=== PATIENT | female | born 2005 | race Caucasian/White ===

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

== ENCOUNTER 2025-01-18 15:03 | Outpatient (REF) | payer MEDICAID, SELFPAY ==
--- OUTSIDE RECORDS SUMMARY | 2025-01-18 16:26 | XMS_ITS | Encounter Summary ---
Author Organization [facility] Address [address] [place] [address] Phone Care Team Providers Care Dairy Grazer Name Role Phone Aslhey De La Fuente MD Primary Care Provider [phone] Encounter Details Date Type Department Care Team (Late st Contact Info) Description 01/06/2010 Documentation [facility] Family Medicine [address] [place] [address] Family Medicine, Physician [address] [place], [place] [id number] Social History Tobacco Use Types Packs/Day Years Used Date Smoking Tobacco: Never Assessed Comments Unknown Sex and Gender Information Value Date Recorded Sex Assigned at Female 08/26/2022 10:15 PM EDT Legal Sex Female 5:01 PM EDT Gender Identity Female 09/02/2021 8:37 AM EDT Sexual Orientation Straight 11/28/2021 4: 13 PM EST documented as of this encounter Plan of Treatment Not on file documented as of this encounter Visit Diagnoses Not on filedocumented in this encounter Care Teams Dairy Grazer Relationship Specialty Start Date End Date Ashley De La Fuente MD [address] [place] [id number] PCP - General Pediatrics 09/15/22 documented as of this encounter
--- OUTSIDE RECORDS SUMMARY | 2025-01-18 16:26 | XMS_ITS | Encounter Summary ---
Author Organization [facility] Address [address] [place] [address] Phone Care Team Providers Care Bicycle Messenger Name Role Phone Ashley De La Fuente MD Primary Care Provider [phone] Reason for Visit * Reason Onset Date Comments overdue labs 12/25/2024 Encounter Details Date Type Department Care Team ([facility] st Contact Info) Description 12/25/2024 Telephone [facility] [address] [place] [address] Barb Trevino LPN [address] [place] [address] overdue labs Social History Tobacco Use Types Packs/Day Years Used Date Smoking Tobacco: Never Smokeless Tobacco: Never Alcohol Use Standard Drinks/Week Comments Never 0 (1 standard drink = 0.6 oz pur e alcohol) Hunger/Food Answer Date Recorded In the last 12 months, did y ou or your family ever eat less than you felt you should because there wasn't enough money for food? No 08/26/2022 Stable Housing Answer Date Recorded Are you worried that in the next 2 months you may not have stable housing? Yes 08/26/2022 Transportation Concerns Answer Date Rec orded In the last 12 months, have you or your family ever had to go without healthcare because you didn't have a way to get there? No 08/26/2022 Hazards in Home Answer Date Recorded Think about the place you li ve. Do you have problems with any of the following? Pests (mice or roaches), mold, no/not working smoke detectors, water leaks, no window guards. No 2021 Financing Utilities Answer Date Recorde d In the last 12 months, has t he electric, gas, oil, or water company threatened to shut off your services in your home? No 08/26/2022 Safety at Home Answer Date Recorded Are you or your family worried about feeling saf e in your home? No 08/26/2022 Outside Support Answer Date Recorded Do you feel that you need mo re support from other people or programs to help you care for yourself or your family? Yes 08/26/2022 Understanding Health Concerns Answer Da te Recorded Do you need help understandi ng your or your child's healthcare needs (diagnosis, medications, plan, etc.)? No 08/26/2022 Financing Health Concerns Answer Date R ecorded In the last 12 months, was t here a time when your child needed to see a doctor or get medications or supplies but could not because of cost? No 08/26/2022 Missing School or Work Answer Date Cyrus rded Did you or your child miss s chool or work because of a health problem that could have been avoided? No 08/26/2022 Comments No Sex and Gender Information Value Date Recorded Sex Assigned at Female 08/26/2022 10:15 PM EDT Legal Sex Female 5:01 PM EDT Gender Identity Female 09/02/2021 8:37 AM EDT Sexual Orientation Straight 11/28/2021 4: 13 PM EST documented as of this encounter Miscellaneous Notes * Telephone Encounter - Barb Trevino LPN - 12/25/2024 3:16 PM EST Overdue labs message sent via [employer]. documented in this encounter Plan of Treatment Not on file documented as of this encounter Visit Diagnoses Not on filedocumented in this encounter Care Teams Bicycle Messenger Relationship Specialty Start Date End Date Ashley De La Fuente MD [address] [place] [phone] PCP - General Pediatrics 09/15/22 documented as of this encounter
--- OUTSIDE RECORDS SUMMARY | 2025-01-18 16:26 | XMS_ITS | Clinical Summary ---
Author Organization [facility] Address [address] [place] [address] Phone Care Team Providers Care Inspector Final Assembly Electrical Name Role Phone Ashley De La Fuente MD Primary Care Provider [phone] Allergies No known active allergies Medications omeprazole 40 MG capsule Take 40 mg by mouth daily. 10/09/2024 Active medroxyPROGESTER one 150 MG/ML injection Inject into the muscle every 3 months. Active Active Problems Problem Noted Date Diagnosed Date Irritable bowel syndrome with diarrhea 2 Overview (10/09/2024): 08/28: Sees GI at [facility] Yohan Fallon - Dr. Braxton. Dx with IBS, lactose intolerance. No meds. Lactaid pills help. Manages pain/diarrhea. Pt felt meds didn't help. Won't take any meds. 10/02/24 Had GI f/u at [facility]. Labs ordered, trial of omeprazole and Bentyl, ref to RD for meal ideas, f/u in 4-6 wks with GI Assessment & Plan (10/11/2024 10:19 PM EST): Pt lost lab slip from GI and has not gone for labs yet. Labs ordered per GI note and pt will get these done today. She will get stool collection cups from the lab. She is not taking Miralax because that made her feel worse, but feels dicyclomine and omeprazole are helping. F/u with GI Dr Braxton at [facility]. She will schedule this f/u, as well as f/u with RD. F/u with me in 3 mo to follow weight and mental health. Assessment & Plan (08/26/2022 10:33 AM EDT): Sees GI at [facility] [place] [facility] Yohan Fallon - Dr. Braxton. Dx with IBS, lactose intolerance. No meds. Lactaid pills help. Manages pain/diarrhea. Pt felt meds didn't help. Won't take any meds. Assessment & Plan (12/23/2021 5:37 PM EST): Etiology remains unclear. Exam unremarkable. Labs reviewed, all within normal limits, and those out of range not clinically significant. Weight reviewed, essentially stable - she has gained and then lost about 3 lb in the last three months. The extent of the vomiting and diarrhea, and avoidance of PO intake, as described by patient and her mother, would be expected to result in some findings. She is being treated for depression with both medication and therapy; denies any primary avoidance of school or social situations. I recommend a GI consult to better clarify what is going on here. Referral placed and contact info given to mother. I encourage her to try to drink fluids and eat even though she fears the vomiting and diarrhea. Encourage trying to attend school as well. Mixed anxiety and depressive disorder 09/25/2021 Assessment & Plan (10/11/2024 10:20 PM EST): Struggling but feels she is starting to improve s/p getting out of difficult relationship. Declines HC support but agrees it might be time to find a therapist in the community. Gave list of community therapists. Also gave crisis info, though pt denies SI. (Positive answer on screen not indicative of actual SI, per pt.) Assessment & Plan (08/26/2022 10:11 PM EDT): No meds or therapy now. Some SI but refuses to deal with it. She agreed to consider one meeting with our [facility] Arely Gustafson, whom she saw in the past, to brainstorm ideas for management. Assessment & Plan (11/04/2021 6:35 PM EST): Refill provided today. Goal to take it every day without missing doses. Set an alarm on the phone. We discussed continuing therapy, regular exercise and self care. Additional goal of getting sleep on track. Follow up in one month. Assessment & Plan (09/25/2021 9:48 AM EST): Increasing from 10 to 20 mg today. She has had a good response so far. Discussed continuing regular therapy and healthy self care habits. She agrees to tell mom or another trusted adult if she has worsening of her moods or suicidal thoughts. She has the crisis number in her phone. Recheck in 4 weeks. Refused influenza vaccine 02/09/2021 Overview (08/26/2022): 08/28. Assessment & Plan (08/26/2022 11:01 AM EDT): Strongly encouraged the influenza vaccine to help prevent influenza personally, & in the community, especially in light of concurrent coronavirus pandemic Family/patient still declined today They will call if they decide to get it Migraine with aura and witho ut status migrainosus, not intractable 10/22/2019 Overview (10/22/2019): 10/22/2019 new diagnosis today. Headaches are throbbing, left side of your. Gets aura of white spots like little starts in vision at the beginning of the headache sometimes. +photophobia. No phonophobia. Advil 800 mg does not help. Sleep helps. Getting headaches twice per week. Does not like to take meds, delays taking advil with headaches. No wake from sleep. Assessment & Plan (10/11/2024 2:59 PM EST): Still gets migraines. Waits too long to take meds. Ibuprofen prn. Getting SAAB less than once/month. Will try taking meds earlier. Will drink more water, eat more consistently. Assessment & Plan (08/26/2022 10:36 AM EDT): Not getting headaches so much anymore. Assessment & Plan (10/22/2019 4:47 PM EST): Discussed migraine triggers such as poor sleep, skipping meals, dehydration, and stress. Jina was encouraged to start working on these measures to avoid the need for medication. I also encouraged Jina to take ibuprofen right away for bad headaches, and not to wait. I encouraged Jina's mother to give some responsibility for migraine management and lifestyle change to Jina, and to try not to 'nag'. I asked Jina to keep a headache diary. 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 Referred to [facility]/ [facility] and counselling was arranged. Mom has agreed to Triple P parenting program. 08/21. In counseling for short term only in 2014. Referred back to counseling 2017 when mom became concerned again about about her behaviors/ anger. Encounters Date Type Department Care Team Description 01/14/2025 Telephone [facility] [address] [place] [address] Tresa Spence [place] No Show 12/26/2024 2:30 PM EST Office Visit [facility] [address] [place] [address] Marisol Melendez MD Gastroenteritis (Primary Dx) 12/25/2024 Telephone [facility] [address] [place] [address] Barb Trevino LPN overdue labs from Last 3 Months Immunizations Immunization Administration Dates Next Due COVID-19 Pfizer, hugh-sucros e, 12+ years 12/15/2021 DTaP 5 01/07/2010, 7,03/14/2006,01/12,2005 H1N1 09/08/2009 HPV Vaccine 9 Valent 02/09/2021,02/20/2019 Hep A, ped/adol 02/20/2019,02/20/2018 Hep B, ped/adol 06/03/2006,03/14/2006,2005 Hib (HbOC) 05/15/2007 Hib (PRP-T) 03/14/2006,01/12/2006,2005 IPV 01/07/2010, 6,01/12/2006,11/15 MMR 01/07/2010 MMRV 09/16/2006 Meningococcal Conj (Menactra) MCV4P 02/20/2018 Meningococcal Conj (Menquadfi) MCV4TT 08/26/2022 Pneumococcal Conjugate 05/15/2007,2005,01/12/2006,11/15 Tdap 02/20/2018 Varicella 01/07/2010 Family History Medical History Relation Name Comments ADD / ADHD Father Rc Gera Anxiety disorder Father Rc Gera Bipolar disorder Father Rc Gera Dental caries Father Rc Gera Depression Father Rc Gera Anxiety disorder Mother Kim Sharma Asthma Mother Kim Sharma Bipolar disorder Mother Kim Sharma Dental caries Mother Kim Sharma Depression Mother Kim Sharma Migraines Mother Kim Sharma Obesity Mother Kim Sharma Relation Name Status Comments Father Rc Boss Alive Father: Alive a nd well Mother Kim Sharma Alive Mother: Alive and well Other No family histo ry of Developmental dislocation of hip, No family history of Strabismus/amblyopia, No family history of Sudden /PA under age 55, No family history of Deafness, No family history of Seizure disorder, No family history of ADD/ADHD Social History Tobacco Use Types Packs/Day Years Used Date Smoking Tobacco: Never Smokeless Tobacco: Never Tobacco Cessation:Counseling Given: Yes Alcohol Use Standard Drinks/Week Comments Never 0 [...] Orientation Straight 11/28/2021 4: 13 PM EST Last Filed Vital Signs Vital Sign Reading Time Taken Comments Blood Pressure 121/75 10/11/2024 2:07 PM EST Pulse 88 10/11/2024 2:07 PM EST Temperature 38.1 ??C (100.5 ??F) 12/26/2024 2:[address] Respiratory Rate - - Oxygen Saturation 100% 11/16/2016 12:00 AM EST Inhaled Oxygen Concentration - - Weight 54.1 kg (119 lb 3.2 oz) 12/26/2024 2:44 P M EST Height 172 cm (5' 7.7 ) 10/11/2024 2:07 PM EST Body Mass Index 18.29 10/11/2024 2:07 PM EST Plan of Treatment Health Maintenance Due Date Last Done Comments Men B Vaccine (1 of 2 - Standard) 2021 Influenza Vaccines (#1) 2024 COVID-19 Vaccine (2 - 2023-2 5 season) 2024 12/15/2021 Chlamydia and Gonorrhea Screening 11/07/2024 08/26/2022, 02/02/2022, 11/24/2021, Additional history exists DTaP,Tdap,and Td Vaccines (7 - Td or Tdap) 02/21/2028 02/20/2018, 01/07/2010, 05/15/2007, Additional history exists Hepatitis B Vaccines Completed 06/03/2006, 03/14/2006, 2005 HIB Vaccines Completed 05/15/2007, 06/2006, 01/12/2006, Additional history exists Pneumococcal Vaccine Completed 05/15/2007, 03/14/2006, 01/12/2006, Additional history exists IPV Vaccines Completed 01/07/2010, 05/08, 01/12/2006, Additional history exists MMR Vaccines Completed 01/07/2010, 09/16/2006 Varicella Vaccines Completed 01/07/2010, 09/16/2006 Hepatitis A Vaccines Completed 02/20/2019, 02/21/20 18 HPV Vaccines Completed 02/09/2021, 02/20/2019 Meningococcal Vaccine Completed 08/26/2022, 018 HIV Screening Completed 10/11/2024 Hepatitis C Screening Completed 10/11/2024 Procedures * Due to [place] state law, this organization might not be sharing sensitive test results. Procedure Name Priority Date/Time Associated Diagnosis Comments HEPATITIS C ANTIBODY WITH REFLEX TO HCV, RNA, QUANT, RT PCR Routine 10/11/2024 3:08 PM EST Irritable bowel syndrome with diarrhea Weight loss, unintentional CHLAMYDIA AND GONORRHEA, AMPLIFIED Routine 08/26/2022 11:14 AM EDT Encounter for screening examination for chlamydial infection from Last 3 Months or Most Recently Relevant to Health Maintenance Results * Due to [place] state law, this organization might not be sharing sensitive test results. * Hepatitis C antibody (10/11/2024 3:08 PM EST) [facility] HCV Ab Non Reactive Non Reactive [facility] Blood 10/11/2024 3:08 PM EST 10/11/2024 Narrative [facility] - 10/12/2024 12:07 PM EST Performed at: ??01 - [facility], [address], [place], [place] ??[id number] Fitness Director: Dg Andrews MD, Phone: ??[phone] us Ashley De La Fuente MD LAB BLOOD ORDERABLES Final Resul t [facility] [address] [place] [address] * Chlamydia and Gonorrhoea, Amplified (08/26/2022 11:14 AM EDT) [facility] Chlamydia Trachomatis, DNA Probe NEGATIVE (NEG) [facility] Comment: No Chlamydia Trachomatis RNA detected in this patient's sample ? (REFERENCE RANGE/NORMAL VALUE: NOT DETECTED) ? Note: This test uses plastics fitter- mediated amplification method to detect rRNA from C. Trachomatis URINE GC AMP PROBE NEGATIVE (NEG) [facility] Comment: No Neisseria Gonorrhoeae RNA detected in this patient's sample ? (REFERENCE RANGE/NORMAL VALUE: NOT DETECTED) ? NOTE: This test uses plastics fitter-mediated amplification method to detect rRNA from N.Gonorrhoeae. A negative result does not preclude infection. In the case of a negative urine result, testing of an endocervical(female) or urethral (male) specimen is recommended if there is high clinical suspicion of infection. Due to very high sensitivity of Nucleic Acid Amplification Test, false positive results may occur. Therefore, specimen handling is extremely important. In patients in whom the disease is unlikely, additional sample for testing should be considered after an initial positive result. The performance characteristics of this test have not been evaluated in children. The Aptima Combo2 assay is not intended for the evaluation of suspected sexual abuse or for other medico-legal indications. The ordering provider should assess if the patient had consensual sex without risk of sexual abuse. Consult the [facility] if needed. Contact phone number . Therapeutic failure or success cannot be determined with the Aptima Combo2 assay since nucleic acid may persist following appropriate antimicrobial therapy. The Centers for Disease Control and Prevention (CDC) recommends confirmatory retesting using culture or a different nucleic acid amplification test when positive results occur, if indicated. Testing performed or reported by [facility], a Service of [facility], [address] [place] [address] Dg Andrews MD, Neck Band Operator [facility]# [id number] Urine (Urine) 08/26/2022 11: 14 AM EDT 08/26/2022 3:15 PM EDT us Ashley De La Fuente MD LAB MICROBIOLOGY - GENERAL ORDER PITER Final Result [facility] from Last 3 Months or Most Recently Relevant to Health Maintenance Insurance [facility] NON PCC ACO [facility] Address: [address] [address] [place] [address] [facility] NON PCC Care Teams Inspector Final Assembly Electrical Relationship Specialty Start Date End Date Ashley De La Fuente MD [address] [place] [address] [phone] PCP - General Pediatrics 09/15/22
--- OUTSIDE RECORDS SUMMARY | 2025-01-18 16:26 | XMS_ITS | Encounter Summary ---
Author Organization [facility] Address [address] [place] [address] Phone Care Team Providers Care Bridge Club Manager Name Role Phone Ashley De La Fuente MD Primary Care Provider [phone] Encounter Details Date Type Department Care Team (Late st Contact Info) Description 03/04/2010 Documentation [facility] [place] [address] [place] [address] Family Medicine, Physician [address] [place], [place] [id number] Social History Tobacco Use Types Packs/Day Years [...] on filedocumented in this encounter Care Teams Bridge Club Manager Relationship Specialty Start Date End Date Ashley De La Fuente MD [address] [place] [address] PCP - General Pediatrics 09/15/22 documented as of this encounter
--- OUTSIDE RECORDS SUMMARY | 2025-01-18 16:26 | XMS_ITS | Encounter Summary ---
Author Organization [facility] Address [address] [place] [address] Phone Care Team Providers Care Setter Out Name Role Phone Ashley De La Fuente MD Primary Care Provider [phone] Encounter Details Date Type Department Care Team (Late st Contact Info) Description 01/08/2010 Documentation [facility] [place] Family Medicine [address] [place] [address] Family Medicine, Physician [address] [place], [place] [phone] Social History Tobacco Use Types Packs/Day Years [...] on filedocumented in this encounter Care Teams Setter Out Relationship Specialty Start Date End Date Ashley De La Fuente MD [address] [place] [phone] PCP - General Pediatrics 09/15/22 documented as of this encounter
--- OUTSIDE RECORDS SUMMARY | 2025-01-18 16:26 | XMS_ITS | Encounter Summary ---
Author Organization [facility] Address [address] [place] [address] Phone Care Team Providers Care Vacuum Cooker Operator Name Role Phone Ashley De La Fuente MD Primary Care Provider [phone] Encounter Details Date Type Department Care Team (Late st Contact Info) Description 06/23/2017 Conversion Encounter [facility] [address] [place] [address] Social History Tobacco Use Types Packs/Day Years [...] on filedocumented in this encounter Care Teams Vacuum Cooker Operator Relationship Specialty Start Date End Date Ashley De La Fuente MD [address] [place] [address] PCP - General Pediatrics 09/15/22 documented as of this encounter
--- OUTSIDE RECORDS SUMMARY | 2025-01-18 16:26 | XMS_ITS | Encounter Summary ---
Author Organization [facility] Address [address] [place] [address] Phone Care Team Providers Care Case Picker Name Role Phone Ashley De La Fuente MD Primary Care Provider [phone] Encounter Details Date Type Department Care Team (Late st Contact Info) Description 07/16/[address] [facility] [place] [address] [place] [address] Family Medicine, Physician [address] [place], [place] [address] Social History Tobacco Use Types Packs/Day Years [...] on filedocumented in this encounter Care Teams Case Picker Relationship Specialty Start Date End Date Ashley De La Fuente MD [address] [place] [phone] PCP - General Pediatrics 09/15/22 documented as of this encounter
--- OUTSIDE RECORDS SUMMARY | 2025-01-18 16:26 | XMS_ITS | Encounter Summary ---
Author Organization [facility] Address [address] [place] [address] Phone Care Team Providers Care Carrier Driver Name Role Phone Ashley De La Fuente MD Primary Care Provider [phone] Reason for Visit * Reason Onset Date Comments No Show 01/14/2025 Encounter Details Date Type Department Care Team ([facility] st Contact Info) Description 01/14/2025 Telephone [facility] [place] [address] [place], [place] [id number] [place], [place] [address] [place] [address] No Show Social History Tobacco Use Types Packs/Day Years [...] encounter Miscellaneous Notes * Telephone Encounter - Tresa Spence MA - 01/14/2025 12:56 PM EDT Called pt due to a no show she didn't answer her phone so I left her a message to call our office to reschedule. documented in this encounter Plan of Treatment Not on file documented as of this encounter Visit Diagnoses Not on filedocumented in this encounter Care Teams Carrier Driver Relationship Specialty Start Date End Date Ashley De La Fuente MD [address] [place] [phone] PCP - General Pediatrics 09/15/22 documented as of this encounter
--- OUTSIDE RECORDS SUMMARY | 2025-01-18 16:26 | XMS_ITS | Encounter Summary ---
Author Organization [facility] Address [address] [place] [address] Phone Care Team Providers Care Quality Project Manager Name Role Phone Ashley De La Fuente MD Primary Care Provider [phone] Encounter Details Date Type Department Care Team (Late st Contact Info) Description 12/09/2010 Documentation [facility] [place] [address] [place] [address] Family Medicine, Physician [address] [place], [place] [address] Social History Tobacco Use Types Packs/Day Years [...] on filedocumented in this encounter Care Teams Quality Project Manager Relationship Specialty Start Date End Date Ashley De La Fuente MD [address] [place] [address] PCP - General Pediatrics 09/15/22 documented as of this encounter
--- OUTSIDE RECORDS SUMMARY | 2025-01-18 16:26 | XMS_ITS | Encounter Summary ---
Author Organization [facility] Address [address] [place] [address] Phone Care Team Providers Care Pipe Fitter Supervisor Maintenance Name Role Phone Ashley De La Fuente MD Primary Care Provider [phone] Encounter Details Date Type Department Care Team (Late st Contact Info) Description 01/30/2010 [place] [facility] [place] [address] [place] [address] Family Medicine, Physician [address] [place], [place] [phone] Social History Tobacco Use Types Packs/Day Years [...] on filedocumented in this encounter Care Teams Pipe Fitter Supervisor Maintenance Relationship Specialty Start Date End Date Ashley De La Fuente MD [address] [place] [address] PCP - General Pediatrics 09/15/22 documented as of this encounter
--- OUTSIDE RECORDS SUMMARY | 2025-01-18 16:26 | XMS_ITS | Encounter Summary ---
Author Organization [facility] Address [address] [place] [address] Phone Care Team Providers Care It Audit Manager Name Role Phone Ashley De La Fuente MD Primary Care Provider [phone] Reason for Visit * Reason Comments Vomiting Started last night Encounter Details Date Type Department Care Team ([facility] Contact Info) Description 12/26/2024 2:30 PM EST Office Visit [facility] [place] [address] [place] [address] Marisol Melendez MD [address] [place] [address] Gastroenteritis (Primary Dx) Social History Tobacco Use Types Packs/Day Years [...] PM EST documented as of this encounter Last Filed Vital Signs Vital Sign Reading Time Taken Comments Blood Pressure - - Pulse - - Temperature 38.1 ??C (100.5 ??F) 12/26/2024 2:[address] Respiratory Rate - - Oxygen Saturation - - Inhaled Oxygen Concentration - - Weight 54.1 kg (119 lb 3.2 oz) 12/26/2024 2:44 P M EST Height - - Body Mass Index 18.29 10/11/2024 2:07 PM EST documented in this encounter Progress Notes * Marisol Melendez MD - 12/26/2024 2:30 PM EST [facility] Progress Note Chief Complaint Vomiting (Started last night ) Jina is a 19yr female who presents to the office with her mother, whose name is Kim. History of Present Illness History of Present Illness Abd pain, vomiting, and diarrhea. Not drinking much. Has tried water and gaston young Last vomit was early this morning. Diarrhea no blood, slight mucous. Whole family has been sick. Lasts a few days Review of Systems Constitutional: Positive for appetite change, chills and fever. Negative for fatigue. HENT: Negative for congestion, rhinorrhea and sore throat. Respiratory: Negative for cough and shortness of breath. Gastrointestinal: Positive for abdominal pain, diarrhea, nausea and vomiting. Musculoskeletal: Negative for myalgias. Skin: Negative for rash. Reviewed this visit: Medications Menstrual History Vitals Temp 100.5 ??F (38.1 ??C) (Tympanic) Wt 119 lb 3.2 oz (54.1 kg) BMI 18.29 kg/m?? Physical Exam Constitutional: Comments: Well appearing HENT: Right Ear: Tympanic membrane normal. Left Ear: Tympanic membrane normal. Nose: No congestion or rhinorrhea. Mouth/Throat: Mouth: Mucous membranes are moist. Pharynx: Oropharynx is clear. No oropharyngeal exudate. Eyes: Extraocular Movements: Extraocular movements intact. Conjunctiva/sclera: Conjunctivae normal. Pupils: Pupils are equal, round, and reactive to light. Cardiovascular: Rate and Rhythm: Normal rate and regular rhythm. Heart sounds: No murmur heard. Pulmonary: Effort: Pulmonary effort is normal. Breath sounds: Normal breath sounds. Abdominal: General: Abdomen is flat. Bowel sounds are normal. There is no distension. Palpations: Abdomen is soft. Tenderness: There is abdominal tenderness (diffuse, pt reports it is stomach muscles). There is no guarding or rebound. Musculoskeletal: Cervical back: Normal range of motion and neck supple. Skin: General: Skin is warm and dry. Findings: No rash. Neurological: Mental Status: She is alert and oriented to person, place, and time. Physical Exam Assessment and Plan Assessment & Plan Jina was seen today for vomiting. Gastroenteritis (Primary) Vomiting and diarrhea x 24 hours, here for a work note. Whole family has been sick with the same thing. Looks well, push fluids. - Symptomatic care was reviewed. - Signs of worsening and return precautions were reviewed. - Follow up if worsening or no better in a few days. - Signs of dehydration reviewed. Stay hydrated. Call if symptoms worsen. - An independent historian was used today due to the patient's age or intellectual disability. -This note was created in-part using artificial intelligence. Consent to record the visit and use this technology was obtained by the patient/guardian. documented in this encounter Plan of Treatment Not on file documented as of this encounter Visit Diagnoses Diagnosis Gastroenteritis- Primary Other and unspecified noninfectious gastroenteritis and colitis documented in this encounter Care Teams It Audit Manager Relationship Specialty Start Date End Date Ashley De La Fuente MD [address] [place] [address] PCP - General Pediatrics 09/15/22 documented as of this encounter
--- OUTSIDE RECORDS SUMMARY | 2025-01-18 16:26 | XMS_ITS ---
Author Name [facility] Organization Unknown History of Medication Use Medication Directions Dispensed Refills Start Date End Date Stat us FLUoxetine (PROZAC) 20 MG capsule nightly 01/05/2022 active ibuprofen (MOTRIN) 600 MG tablet TAKE 1 TABLET BY MOUTH EVERY 6 TO 8 HOURS NEEDED 08/08/2024 active amoxicillin-clavulanate (AUGMENTIN) 875-125 mg per tablet TAKE 1 TABLET BY MOUTH EVERY 12 HOURS 08/08/2024 active omeprazole (PRILOSEC) 20 MG capsule Take 1 capsule (20 mg) by mouth daily 05/18/2022 active medroxyPROGESTERone (DEPO-PROVERA) 150 mg/mL injection Inject into the muscle every 3 (three) months active acetaminophen (TYLENOL) 500 MG tablet TAKE 1 TABLET BY MOUTH EVERY 4 TO 6 HOURS NEEDED 08/08/2024 active Problems Problem Status Onset Date Problem Type Date of Resoluti on Source Generalized abdominal pain active 2022-02-18 ProblemAct [facility] [place] Diarrhea, unspecified type active 2022-02-18 ProblemAct [facility] [place] Encounters Encounter Type Encounter Reason Primary Diagnosis Location Date Ambulatory Diarrhea, unspecified Diarrhea, unspecified [facility] ([facility] [place] 01/18/2025 Ambulatory Generalized abdominal pain Generalized abdominal pain [facility] ([facility] [place] 10/02/2024 Ambulatory [facility] 05/18/2022 Ambulatory [facility] 04/09/2022 Ambulatory [facility] 03/31/2022 Ambulatory [facility] 03/30/2022 Care Team Organization Name Specialty Phone Email Start Date End Da te [facility] SACHIN DUNNE Primary Care 10/04/2024 [facility] ([facility] [place] SACHIN DUNNE Primary Care 10/02/2024 [facility] KUMAR VALENZUELA Primary Care 05/18/2022
[2025-01-24 18:53] LABS: Calprotectin, Fecal 18 mcg/g
== END 2025-01-18 15:04 | disposition home or self-care (01) ==
LOC: HO.LNP 15:03
PROVIDERS: Internal Medicine; Visit Provider Pediatrics Pediatric Gastroenterology
DX: R63.4 Abnormal weight loss (principal)
CPT/HCPCS: 83993

== ENCOUNTER 2025-02-05 21:22 | Emergency (ER) | payer OTHER, SELFPAY ==
--- NOTE | ~2025-02-05 | CT_ITS ---
CLINICAL HISTORY: rlq pain ?appy CT abdomen and pelvis with contrast Comparison: None Findings: The lung bases are clear. Unremarkable gallbladder and solid organs. No urolithiasis. No bowel obstruction, pneumoperitoneum, or pneumatosis. Pelvic contents unremarkable. Normal appendix. The bones are intact. IMPRESSION: No acute findings. This document has been electronically signed by: Nader Serrano MD, PHD on 02/06/2025 04:17:23
[2025-02-05 21:56] VITALS: BP 95/70; PULSE 73; RESP 16; TEMP 37; O2SAT 99; BMI 18.8
[2025-02-05 22:26] LABS: MANUAL DIFF FLAG NO
[2025-02-05 22:27] LABS: Eosinophils Absolute Auto 0.1 X10*3/uL (0.0-0.4); Eosinophils Percent Auto 1.1 % (0-4); Hematocrit 36.9 % (37.0-47.0); Imm Gran Abs Auto 0.02 X10*3/uL (0.00-0.03); Imm Gran Pct Auto 0.4 % (0.0-0.4); Lymphocytes Percent Auto 34.9 % (20-40); Mean Corpuscular HGB Conc 35.2 g/dl (31.0-35.0); Mean Corpuscular Hemoglobin 28.3 pg (27.0-33.0); Mean Corpuscular Volume 80.4 fL (80.0-98.0); Mean Platelet Volume 10.8 fL (9.4-12.3); Monocytes Absolute Auto 0.6 X10*3/uL (0.1-1.2); Monocytes Percent Auto 10.8 % (2-11); Neutrophils Percent Auto 52.8 % (45-73); Platelet Count 297 X10*3/uL (160-400); Red Blood Count 4.59 X10*6/uL (4.20-5.50); Red Cell Distribution Width 12.1 % (11.0-16.0); White Blood Count 5.7 X10*3/uL (4.8-10.8)
[2025-02-05 22:28] LABS: Appearance Urine Clear; Color Urine Yellow; Glucose Urine UA Negative (Negative); Leukocyte Esterase Urine Negative (Negative); Nitrite Urine Negative (Negative); PH 5.5 (5.0-9.0); Specific Gravity - Urine >= 1.030 (1.005-1.025); UMIC TRIGGER UACC YES; Urine Blood Negative (Negative); Urine Ketones Trace mg/dL (Negative); Urine Protein 100 (2+) mg/dL (Neg-Trace)
[2025-02-05 22:47] LABS: Alanine Aminotransferase 18 U/L (0-31); Albumin Level 4.5 g/dL (3.5-5.0); Alkaline Phosphatase 39 U/L (39-117); Anion Gap 10 (12-20); Aspartate Amino Transferase 18 U/L (5-31); Bilirubin Total 0.5 mg/dL (0.0-1.0); Blood Urea Nitrogen 16 mg/dL (9-16); Calcium 9.1 mg/dL (8.4-10.2); Carbon Dioxide 26 mmol/L (22-29); Chloride 112 mmol/L (96-108); Creatinine Clr Calc Pharmacy 93.7; Estimated Glomerular Filt Rate > 60; Glucose Random 56 mg/dL (60-115); Potassium 3.8 mmol/L (3.3-5.1); Sodium 144 mmol/L (135-145); Total Protein 7.2 g/dL (6.5-8.0)
[2025-02-05 23:13] LABS: Bacteria Urine None Seen (None Seen); Hyaline Casts Urine 0-2 /LPF (0-2); RBC Urine 0-2 /HPF (0-2); WBC Urine 0-5 /HPF (0-5)
--- NOTE | 2025-02-06 02:35 | PC.NURSE ---
Pt is a pleasant 19 y/o female who presents to the ED for evaluation of RLQ pain that started at approx 1800 hours tonight with no similar episodes in the past. Denies fever, nausea/vomiting, trauma, and any problems voiding.
--- NOTE | 2025-02-06 02:49 | ED_ITS ---
HPI - Abdominal Pain General Chief Complaint: Abdominal Pain Stated Complaint: Lower R abdominal pain Time Seen by Provider: 02/06/25 02:49 Source: patient Mode of arrival: ambulatory Limitations: no limitations History of Present Illness ED Provider: HPI narrative: Patient was healthy complaining of pain in the right lower quadrant started at 17:00 today sharp in nature no nausea no vomiting no diarrhea no urinary complaints patient never had similar pain in the past patient is on her menstruation currently Related Data Allergies Allergy/AdvReac Type Severity Reaction Status Date / Time No Known Allergies Allergy Verified 02/05/25 21:58 Review of Systems Review of Systems Yes all other systems are reviewed and are negative PMFSH Past Medical History Medical History No known health problems Social History Social History Alcohol intake: never Advance Directives: No Advance Directives Information Provided: Yes Do you have a plan to hurt others: No Plan Physical Exam ED Vital Signs: Vital Signs - 24 hr 02/05/25 21:56 Temperature 98.6 F Pulse Rate 73 Respiratory Rate 16 Blood Pressure 95/70 Pulse Oximetry 99 Oxygen Delivery Method Room Air BMI result Body Mass Index 18.8 Appearance: Alert. Oriented X3. No acute distress. Eyes: No pallor or icterus ENT: Pharynx normal. Oral Mucosa moist Neck: Normal inspection. Neck supple. CVS: Normal heart rate and rhythm. Pulses normal. Respiratory: No respiratory distress. Equal air entry bilateral, no wheezing/rales/rhonchi Abdomen: Soft and deep tenderness right lower quadrant no rebound tenderness or guarding. Bowel sounds are present, no mass palpable, no CVA tenderness Skin: Skin warm and dry. Normal skin color. Normal skin turgor. Extremities: No lower extremity edema. No calf tenderness Neuro: Oriented X 3. Medical Decision Making Medical Decision Making [facility] Narrative: Patient's right lower quadrant pain etiology not clear normal WBC count normal urine CT scan also negative for acute Differential Diagnosis Differential Diagnoses: The differential diagnosis associated with the presentation includes Appendicitis/ovarian cyst/ovarian torsion/menstruation pain/diverticulitis Lab Data [facility] Lab Attestation statement: I reviewed the patient's lab results. 02/05/25 22:18 04/01/25 22:18 Labs: Lab Results 02/05/25 02/06/25 Range/Units 22:18 22:18 WBC 5.7 (4.8-10.8) X10*3/uL RBC 4.59 (4.20-5.50) X10*6/uL Hgb 13.0 (12.0-16.0) g/dl Hct 36.9 L (37.0-47.0) % MCV 80.4 (80.0-98.0) fL MCH 28.3 (27.0-33.0) pg MCHC 35.2 H (31.0-35.0) g/dl RDW 12.1 (11.0-16.0) % Plt Count 297 (160-400) X10*3/uL MPV 10.8 (9.4-12.3) fL Immature Gran % (Auto) 0.4 (0.0-0.4) % Neut % (Auto) 52.8 (45-73) % Lymph % (Auto) 34.9 (20-40) % [place] % (Auto) 10.8 (2-11) % Eos % (Auto) 1.1 (0-4) % Baso % (Auto) 0.0 (0-2) % Lymph # (Auto) 2.0 (1.2-4.9) X10*3/uL [place] # (Auto) 0.6 (0.1-1.2) X10*3/uL Eos # (Auto) 0.1 (0.0-0.4) X10*3/uL Baso # (Auto) 0.0 (0.0-0.2) X10*3/uL Abs Immat Gran (auto) 0.02 (0.00-0.03) X10*3/uL Absolute Neuts (auto) 3.0 (2.0-8.3) x10*3/uL Absolute Nucleated RBC 0.000 (0.0-0.012) X10*3/uL Nucleated RBC % (auto) 0.0 (0.0-0.2) /100WBC Sodium 144 (135-145) mmol/L Potassium 3.8 (3.3-5.1) mmol/L Chloride 112 H (96-108) mmol/L Carbon Dioxide 26 (22-29) mmol/L Anion Gap 10 L (12-20) BUN 16 (9-16) mg/dL Creatinine 0.83 (0.5-1.4) mg/dL Estim Creat Clear Calc 93.7 Estimated GFR > 60 Random Glucose 56 L* (60-115) mg/dL Calcium 9.1 (8.4-10.2) mg/dL Total Bilirubin 0.5 (0.0-1.0) mg/dL AST 18 (5-31) U/L ALT 18 (0-31) U/L Alkaline Phosphatase 39 (39-117) U/L Total Protein 7.2 (6.5-8.0) g/dL Albumin 4.5 (3.5-5.0) g/dL Urine Color Yellow Urine Appearance Clear Urine pH 5.5 (5.0-9.0) Ur Specific [place] >= 1.030 H (1.005-1.025) Urine Protein 100 (2+) H (Neg-Trace) mg/dL Urine Glucose (UA) Negative (Negative) mg/dL Urine Ketones Trace (Negative) mg/dL Urine Blood Negative (Negative) Urine Nitrite Negative (Negative) Ur Leukocyte Esterase Negative (Negative) Urine RBC 0-2 (0-2) /HPF Urine WBC 0-5 (0-5) /HPF Ur Squamous Epith Cells 3-5 (0-2) /HPF Urine Bacteria None Seen (None Seen) Hyaline Casts 0-2 (0-2) /LPF Urine Test NEGATIVE (NEGATIVE) Independent Interpretation I performed an independent interpretation of an: CT Scan Radiology Impression Discussion of test interpretation with radiology: I have reviewed the radiologist's reading. Radiologist Impression: Findings: The lung bases are clear. Unremarkable gallbladder and solid organs. No urolithiasis. No bowel obstruction, pneumoperitoneum, or pneumatosis. Pelvic contents unremarkable. Normal appendix. The bones are intact. IMPRESSION: No acute findings. This document has been electronically signed by: Nader Serrano MD, PHD on 02/06/2025 04:17:23 Medications Administered Discontinued Medications Generic Name Dose Route Start Last Admin Trade Name Freq PRN Reason Stop Dose Admin Iohexol 85 ml 02/06/25 03:34 02/06/25 03:35 Iohexol 350 Mg/Ml 100 Ml Infus..Btl IV 02/06/25 03:35 85 ml ONCE ONE Administration Discharge Plan Discharge Clinical Impression: Abdominal pain Patient Disposition: Home, Self-Care Instructions: Abdominal Pain (ED) Additional Instructions: Cause of your abdominal pain is not clear likely from menstruation Your CT scan is negative for appendicitis or any acute pathology Your labs are reassuring Report to the ER/PCP if pain continues or gets worse Tylenol/Motrin for pain as needed Stand Alone Forms: Work/School Release Print Language: Icelandic
--- OUTSIDE RECORDS SUMMARY | 2025-02-06 03:04 | XMS_ITS | Encounter Summary ---
Author Organization [facility] Address [address] [place] [address] Phone Care Team Providers Care Food Service Sales Representatives Name Role Phone Ashley De La Fuente MD Primary Care Provider [phone] Encounter Details Date Type Department Care Team (Late st Contact Info) Description 12/09/2010 [place] [facility] [place] [address] [place] [address] Family Medicine, Physician [address] [place], [place] [address] Social History Tobacco Use Types Packs/Day Years [...] on filedocumented in this encounter Care Teams Food Service Sales Representatives Relationship Specialty Start Date End Date Ashley De La Fuente MD [address] [place] [phone] PCP - General Pediatrics 09/15/22 documented as of this encounter
--- OUTSIDE RECORDS SUMMARY | 2025-02-06 03:04 | XMS_ITS | Encounter Summary ---
Author Organization [facility] Address [address] [place] [address] Phone Care Team Providers Care Lead Material Handler Name Role Phone Ashley De La Fuente MD Primary Care Provider [phone] Encounter Details Date Type Department Care Team (Late st Contact Info) Description 07/16/2010 Documentation [facility] [place] [address] [place] [address] Family Medicine, Physician [address] [place], [place] [address] Social History Tobacco Use Types Packs/Day Years [...] on filedocumented in this encounter Care Teams Lead Material Handler Relationship Specialty Start Date End Date Ashley De La Fuente MD [address] [place] [address] PCP - General Pediatrics 09/15/22 documented as of this encounter
--- OUTSIDE RECORDS SUMMARY | 2025-02-06 03:04 | XMS_ITS | Encounter Summary ---
Author Organization [facility] Address [address] [place] [address] Phone Care Team Providers Care Celluloid Trimmer Name Role Phone Ashley De La Fuente MD Primary Care Provider [phone] Encounter Details Date Type Department Care Team (Late st Contact Info) Description 01/30/2010 Documentation [facility] [place] Family [place] [address] [place] [address] Family Medicine, Physician [address] [place], [place] [address] Social History Tobacco Use Types Packs/Day Years [...] on filedocumented in this encounter Care Teams Celluloid Trimmer Relationship Specialty Start Date End Date Ashley De La Fuente MD [address] [place] [address] PCP - General Pediatrics 09/15/22 documented as of this encounter
--- OUTSIDE RECORDS SUMMARY | 2025-02-06 03:04 | XMS_ITS | Clinical Summary ---
Author Organization [facility] Address [address] [place] [address] Phone Care Team Providers Care Media Theorist And Author Of Name Role Phone Ashley De La Fuente MD Primary Care Provider [phone] Allergies No known active allergies Medications omeprazole 40 MG capsule Take 40 mg by mouth daily. 10/09/2024 Active medroxyPROGESTER one 150 MG/ML injection Inject into the muscle every 3 months. Active Active Problems Problem Noted Date Diagnosed Date Irritable bowel syndrome with diarrhea 2 Overview (10/09/2024): 08/28: Sees GI at [facility] Yohan Fallon - Dr. Braxton. Dx with IBS, lactose intolerance. No meds. Lactaid pills help. Manages pain/diarrhea. Pt felt meds didn't help. Won't take any meds. 10/02/24 Had GI f/u at [facility]. Labs ordered, trial [...] helping. F/u with GI Dr Braxton at [facility]. She will schedule this f/u, as well as f/u with RD. F/u with me in 3 mo to follow weight and mental health. Assessment & Plan (08/26/2022 10:33 AM EDT): Sees GI at [facility] Yohan Fallon - [...] agreed to consider one meeting with our [facility] Arely Gustafson, whom she saw in [...] 11/14/2020 and MRI, labs ordered to r/o osteroberto, with plan for probable ORIF Behavior problem [...] Encounters Date Type Department Care Team Description 02/05/2025 9:22 PM EDT - Present Hospital Encounter [facility] - Patient Ping 01/14/2025 Telephone [facility] [address] [place] [address] Tresa Spence MA No Show 12/26/2024 2:30 PM EST Office Visit [facility] [address] [place] [address] Marisol Melendez MD Gastroenteritis (Primary Dx) 12/25/2024 Telephone [facility] [address] [place] [address] Barb Trevino LPN overdue labs from Last [...] Sharma Relation Name Status Comments Father Rc Walshata Alive Father: Alive a nd well Mother Kim Sharma Alive Mother: Alive and well Other No family histo ry of Developmental dislocation of hip, No family history of Strabismus/amblyopia, No family history of Sudden /OK under age 55, No family history of [...] Hepatitis C Screening Completed 10/11/2024 Procedures * The patient is currently admitted. The information in this section might not be complete until the patient is discharged.Due to [place] state law, this organization might [...] Hepatitis C antibody (10/11/2024 3:08 PM EST) Pathologist [facility] HCV Ab Non Reactive Non Reactive [facility] Blood 10/11/2024 3:08 PM EST 10/11/2024 Narrative [facility] - 10/12/2024 12:07 PM EST Performed at: ??01 - [address], [address], [place], [place] [id number] Sprinkler Fitter Apprentice: Dg Andrews MD, Phone: ??[phone] us Ashley De La Fuente MD LAB BLOOD ORDERABLES Final Resul t [facility] [address] [place] [address] * Chlamydia and Gonorrhoea, Amplified (08/26/2022 11:14 AM EDT) Pathologist [facility] Chlamydia Trachomatis, DNA Probe NEGATIVE (NEG) [facility] Comment: No Chlamydia Trachomatis RNA detected in this patient's sample ? (REFERENCE RANGE/NORMAL VALUE: NOT DETECTED) ? Note: This test uses eye technician- mediated amplification method to detect rRNA from C. Trachomatis URINE GC AMP PROBE NEGATIVE (NEG) [facility] Comment: No Neisseria Gonorrhoeae RNA detected in this patient's sample ? (REFERENCE RANGE/NORMAL VALUE: NOT DETECTED) ? NOTE: This test uses eye technician-mediated amplification method to detect rRNA from N.Gonorrhoeae. [...] without risk of sexual abuse. Consult the [facility] if needed. Contact phone number . Therapeutic failure or success cannot be determined with the Aptima Combo2 assay since nucleic acid may persist following appropriate antimicrobial therapy. The Centers for Disease Control and Prevention (CDC) recommends confirmatory retesting using culture or a different nucleic acid amplification test when positive results occur, if indicated. Testing performed or reported by [facility], a Service of [facility], [facility] [place] [address] Dg Andrews MD, Career Developer [facility]# [id number] Urine (Urine) 08/26/2022 11: 14 AM EDT 08/26/2022 3:15 PM EDT us Ashley De La Fuente MD LAB MICROBIOLOGY - GENERAL ORDER PITER Final Result [facility] from Last 3 Months or Most Recently Relevant to Health Maintenance Insurance [facility] NON PCC [facility] ACO [facility] NON PCC Care Teams Media Theorist And Author Of Relationship Specialty Start Date End Date Ashley De La Fuente MD [address] [place] [phone] PCP - General Pediatrics 09/15/22
[2025-02-06 03:05] LABS: UPreg QC Valid YES; Urine Pregnancy NEGATIVE (NEGATIVE)
--- OUTSIDE RECORDS SUMMARY | 2025-02-06 03:05 | XMS_ITS | Encounter Summary ---
Author Organization [facility] Address [address] [place] [address] Phone Care Team Providers Care Pastrycook Name Role Phone Ashley De La Fuente MD Primary Care Provider [phone] Encounter Details Date Type Department Care Team (Late st Contact Info) Description 01/06/2010 Documentation [facility] [address] [place] [address] Family Medicine, Physician [address] [place], [place] [id number] Social History Tobacco Use Types Packs/Day Years [...] on filedocumented in this encounter Care Teams Pastrycook Relationship Specialty Start Date End Date Ashley De La Fuente MD [address] [place] [address] PCP - General Pediatrics 09/15/22 documented as of this encounter
--- OUTSIDE RECORDS SUMMARY | 2025-02-06 03:05 | XMS_ITS | Encounter Summary ---
Author Organization [facility] Address [address] [place] [address] Phone Care Team Providers Care Saturation Diver Name Role Phone Ashley De La Fuente MD Primary Care Provider [phone] Encounter Details Date Type Department Care Team (Late st Contact Info) Description 01/08/2010 Documentation [facility] [place] [facility] [address] [place] [address] Family Medicine, Physician [address] [place], [place] [id number] Social History Tobacco Use Types Packs/Day Years [...] on filedocumented in this encounter Care Teams Saturation Diver Relationship Specialty Start Date End Date Ashley De La Fuente MD [address] [place] [phone] PCP - General Pediatrics 09/15/22 documented as of this encounter
--- OUTSIDE RECORDS SUMMARY | 2025-02-06 03:05 | XMS_ITS | Encounter Summary ---
Author Organization [facility] Address [address] [place] [address] Care Team Providers Care Cellulose Insulation Helper Name Role Phone Amanda Roper Primary Care Provider [phone] Reason for Visit * Reason Onset Date Comments Medication Refill 02/04/2025 Encounter Details Date Type Department Care Team (Late st Contact Info) Description 02/04/2025 Refill [facility] Specialty [facility] Gastroenterology[address] [address] Nakita Braxton MD [address] [place] [id number] Heartburn Social History Tobacco Use Types Packs/Day Years Used Date Smoking Tobacco: Never Passive Smoke Exposure: Current Smokeless Tobacco: Never Comments No Sex and Gender Information Value Date Recorded Sex Assigned at Not on file Legal Sex Female 12:23 PM EST Gender Identity Not on file Sexual Orientation Not on file documented as of this encounter Plan of Treatment Upcoming Encounters Date Type Department Care Team (Late st Contact Info) Description 04/02/2025 11:30 AM EDT Office Visit [facility] Special[facility] Gastroenterology[address] [address] Nakita Braxton MD [address] [place] [phone] documented as of this encounter Visit Diagnoses Diagnosis Heartburn documented in this encounter Care Teams Cellulose Insulation Helper Relationship Specialty Start Date End Date Amanda Roper FNP [address] [place] [phone] PCP - General Family Medicine 09/24/24 documented as of this encounter
--- OUTSIDE RECORDS SUMMARY | 2025-02-06 03:05 | XMS_ITS | Encounter Summary ---
Author Organization [facility] Address [address] [place], [place] [phone] Phone Care Team Providers Care Tile Installer Name Role Phone Ashley De La Fuente MD Primary Care Provider [phone] Reason for Visit * Reason Comments ED Admission Encounter Details Date Type Department Care Team ([facility] st Contact Info) Description 02/05/2025 9:22 PM EDT - Present Hospital Encounter [facility] - Patient Ping Social History Tobacco Use Types Packs/Day Years [...] on filedocumented in this encounter Care Teams Tile Installer Relationship Specialty Start Date End Date Ashley De La Fuente MD [address] [place] [address] PCP - General Pediatrics 09/15/22 documented as of this encounter
--- OUTSIDE RECORDS SUMMARY | 2025-02-06 03:05 | XMS_ITS | Encounter Summary ---
Author Organization [facility] Address [address] [place] [address] Phone Care Team Providers Care Visual Lead Name Role Phone Ashley De La Fuente MD Primary Care Provider [phone] Encounter Details Date Type Department Care Team (Late st Contact Info) Description 06/23/2017 Conversion Encounter [facility] [address] [place] [address] Social History Tobacco Use Types Packs/Day Years [...] on filedocumented in this encounter Care Teams Visual Lead Relationship Specialty Start Date End Date Ashley De La Fuente MD [address] [place] [address] PCP - General Pediatrics 09/15/22 documented as of this encounter
--- OUTSIDE RECORDS SUMMARY | 2025-02-06 03:05 | XMS_ITS | Clinical Summary ---
Author Organization [facility] Address [address] [place] [address] Care Team Providers Care Salesman/Owner Name Role Phone Amanda Roper Primary Care Provider [phone] Source Comments Please note that some or all of the patient's information could have additional privacy protections. State laws allow health care providers to render certain types of treatment to minors without parental consent. Please do not assume that this information can be shared solely by obtaining just the consent of the patient's parent/guardian. Please determine if all or part of the patient's care was rendered without parent/guardian involvement. And, if so, obtain the minor's consent prior to disclosure.[facility] Allergies No known active allergies Medications FLUoxetine (PROZAC) 20 MG capsule nightly 2 Active FLUoxetine (PROZAC) 20 MG capsule TAKE 1 CAPSULE(20 MG) BY MOUTH EVERY MORNING 2 Active acetaminophen (TYLENOL) 500 MG tablet TAKE 1 TABLET BY MOUTH EVERY 4 TO 6 HOURS NEEDED 4 Active amoxicillin-cla vulanate (AUGMENTIN) 875-125 mg per tablet TAKE 1 TABLET BY MOUTH EVERY 12 HOURS 4 Active chlorhexidine (PERIDEX) 0.12 % solution RINSE MOUTH WITH 15ML (1 CAPFUL) FOR 30 SECONDS IN MORNING AND EVENING AFTER BRUSHING, THEN SPIT 4 Active ibuprofen (MOTRIN) 600 MG tablet 4 Active oxyCODONE (ROXICODONE) 5 MG immediate release tablet TAKE 1 TABLET EVERY 6 HOURS NEEDED FOR BREAKTHROUGH PAIN. 4 Active polyethylene glycol (MIRALAX) 17 gram/dose powder Take 17 g by mouth 4 Active medroxyPROGESTE Leo (DEPO-PROVERA) 150 mg/mL injection Inject into the muscle every 3 (three) months Active omeprazole (PRILOSEC) 40 MG capsuleIndicati ons:Generalized abdominal pain TAKE 1 CAPSULE BY MOUTH EVERY DAY 90 capsule 1 4 Active famotidine (PEPCID) 20 MG tabletIndicatio ns:Heartburn Take 1 tablet (20 mg) by mouth 2 (two) times daily as needed for Heartburn 60 tablet 3 5 02/18/20 25 Active Active Problems Problem Noted Date Diagnosed Date Diarrhea, unspecified type 02/18/2022 Overview (02/18/2022): Added automatically from request for surgery [id number] Generalized abdominal pain 02/18/2022 Overview (02/18/2022): Added automatically from request for surgery [id number] Encounters Date Type Department Care Team Description 02/04/2025 Refill [facility] Gastroenterology, [address] [address] Nakita Braxton MD Heartburn 01/18/2025 11:30 AM EDT Office Visit [facility] Gastroenterology, [address] [address] Nakita Braxton MD Diarrhea, unspecified type (Primary Dx); Weight loss; Heartburn from Last 3 Months Family History Medical History Relation Name Comments No Known Problems Father Irritable bowel syndrome Maternal Uncle Irritable bowel syndrome Mother Irritable bowel syndrome Paternal Uncle Relation Name Status Comments Father Maternal Uncle Mother Paternal Uncle Social History Tobacco Use Types Packs/Day Years Used Date Smoking Tobacco: Never Passive Smoke Exposure: Current Smokeless Tobacco: Never Tobacco Cessation:Counseling Given: Not Answered Comments No Sex and Gender Information Value Date Recorded Sex Assigned at Not on file Legal Sex Female 12:23 PM EST Gender Identity Not on file Sexual Orientation Not on file Last Filed Vital Signs Vital Sign Reading Time Taken Comments Blood Pressure 101/70 01/18/2025 11:14 AM EDT Pulse 75 01/18/2025 11:14 AM EDT Temperature 36.6 ??C (97.9 ??F) 04/01/2022 1:59 PM ED T Respiratory Rate 22 04/01/2022 1:59 PM EDT Oxygen Saturation 98% 04/01/2022 1:59 PM EDT Inhaled Oxygen Concentration - - Weight 57 kg (125 lb 10.6 oz) 01/18/2025 11:14 A M EDT Height 172.5 cm (5' 7.91 ) 01/18/2025 11:14 AM E DT Body Mass Index 19.16 01/18/2025 11:14 AM EDT Plan of Treatment Upcoming Encounters Date Type Department Care Team (Late st Contact Info) Description 04/02/2025 11:30 AM EDT Office Visit [facility]enter[facility], [place] [address] [place] [address] Nakita Braxton MD [address] [place] [phone] Health Maintenance Due Date Last Done Comments DTaP/TDAP/TD VACCINES (1 - Tdap) 2012 ADOLESCENT HIV SCREENING 2018 COVID-19 Vaccine (2 - 2023-2 5 season) 2024 12/15/2021 INFLUENZA (#1) 2024 NIRSEVIMAB VACCINES UNDER 8 MONTHS Aged Out No longer eligible b ased on patient's age to complete this topic Insurance [facility] Care Teams Salesman/Owner Relationship Specialty Start Date End Date Amanda Roper FNP [address] [place] [phone] PCP - General Family Medicine 09/24/24
[2025-02-06] MEDS: iohexoL 350 MG/ML 100 ML INFUS..BTL 85 ML IV (03:35)
[2025-02-06 04:41] VITALS: BP 95/70; PULSE 73; RESP 16; TEMP 37; O2SAT 99
== END 2025-02-06 04:43 | disposition home or self-care (01) ==
PROVIDERS: Emergency Provider Internal Medicine; PCP Pediatrics
DX: R10.31 Right lower quadrant pain (principal); R10.2 Pelvic and perineal pain; Z79.899 Other long term (current) drug therapy
CPT/HCPCS: 36415; 74177; 80053; 81001; 81025; 85025; 99283; 99284; Q9967

== ENCOUNTER → 2025-02-06 02:58 | Outpatient (BNV) | payer OTHER, SELFPAY | PROVIDERS: Emergency Provider Internal Medicine; PCP Pediatrics; Visit Provider General Practice | DX: R10.31 Right lower quadrant pain (principal) | CPT/HCPCS: 74177 ==